=== PATIENT | male | born 1960 | race Hispanic/Latino ===

== ENCOUNTER 2019-02-08 16:00 | Outpatient (CLI) | payer BC | END 2019-02-08 16:01 | disposition home or self-care (01) | LOC: LAB 16:00 | PROVIDERS: ATTEND Internal Medicine | DX: Z11.4 Encounter for screening for human immunodeficiency virus [HIV] (principal); B00.4 Herpesviral encephalitis; E78.5 Hyperlipidemia, unspecified | CPT/HCPCS: 36415; 80061; 87529; 87591; 87806 ==